=== PATIENT | male | born 1980 | race Caucasian/White ===

== ENCOUNTER 2017-04-18 16:39 | Emergency (ER) | payer MEDICAID, OTHER ==
[2017-04-18 16:44] VITALS: BP 124/65; PULSE 98; RESP 16; TEMP 99.3
[2017-04-18] MEDS ORDERED: DIPH,PERTUS(ACELL)TETVAC-LF 0.5 ML VIAL IM ONE (16:55)
--- NOTE | 2017-04-18 17:18 | ED ---
Lower Extremity Injury HPI - General Chief Complaint: Extremity Injury, Lower Stated Complaint: Nail fell on foot Time Seen by Provider: 04/18/17 16:49 Source: patient, RN notes reviewed Mode of arrival: ambulatory Limitations: no limitations - History of Present Illness Initial Comments: This is a 37-year-old male who presents to the emergency department with chief complaint of puncture wound to right foot. Patient states that he was working on an old home prior to arrival when a board with an old, [place] nail fell onto the top of his right foot. Patient states he believes he is up-to-date with tetanus but is not completely certain. Patient states that he believes he hit a "vein" as there was a lot of bleeding. Patient reports the nail did not go very deep and is not concerned about any bone involvement. Denies fever, chills , chest pain, shortness of breath, abdominal pain, nausea or vomiting, constipation or diarrhea, dysuria or hematuria, numbness or tingling, headache or vision changes. - Related Data Previous Rx's Medication Instructions Recorded Ciprofloxacin HCl [Cipro] 500 mg PO Q12HR #14 tablet 04/18/17 Allergies Allergy/AdvReac Type Severity Reaction Status Date / Time No Known Allergies Allergy Verified 04/18/17 16:58 Review of Systems ROS Statement: Those systems with pertinent positive or pertinent negative responses have been documented in the HPI. ROS Other: All systems not noted in ROS Statement are negative. Past Medical History Past Medical History: No Reported History History of Any Multi-Drug Resistant Organisms: None Reported Past Surgical History: No Surgical Hx Reported Past Psychological History: No Psychological Hx Reported Smoking Status: Current every day smoker Past Alcohol Use History: None Reported Past Drug Use History: None Reported General Exam - General Exam Comments Initial Comments: General: Awake and alert, well-developed; in no apparent distress. HEENT: Head atraumatic, normocephalic. Pupils are equal, round and reactive to light. Extraocular movements intact. Neck: Supple. Normal ROM. Cardiovascular: Regular rate and rhythm. No murmurs, rubs or gallops. Chest symmetrical. Respiratory: Lungs clear to auscultation bilaterally. No wheezes, rales or rhonchi. Normal respiratory effort with no use of accessory muscles. Musculoskeletal: Normal range of motion of right ankle and digits. Sensation is intact. Pedal pulses are 2+ equal and palpable bilaterally. Skin: [place], warm and dry without rashes. There is a piece of gauze with dried blood overlying wound. Small 3 mm superficial puncture wound on the lateral dorsal aspect of right foot. Bleeding is controlled. Neurological: Alert and oriented x3. CN II-XII grossly intact. Speech is fluent and answers are appropriate. No focal neuro deficits. Psychiatric: Normal mood and affect. No overt signs of depression or anxiety noted. Limitations: no limitations Course Vital Signs 04/18/17 16:41 Temperature 99.3 F Pulse Rate 98 Respiratory 16 Rate Blood Pressure 124/65 O2 Sat by Pulse 100 Oximetry Medical Decision Making - Medical Decision Making This is a 37 year old male who presents to the emergency department with chief complaint of puncture wound to right foot. Patient reports the nail that punctured right foot was [place] and he is unsure if he is up-to-date with his tetanus vaccination. He received tetanus vaccination update while in the emergency department. He will be discharged home with a prescription for antibiotics. He is to follow up with his primary care provider in 1-2 days. He is no acute distress at this time. Patient is in agreement to the plan and voices understanding. All questions were answered. Disposition Clinical Impression: Puncture wound of skin from metal nail Disposition: HOME SELF-CARE Condition: Good Instructions: Puncture Wound (ED) Additional Instructions: Please take medications as prescribed. Please follow up with primary care provider within 1-2 days. Return to emergency department if symptoms should worsen or any concerns arise. Prescriptions: Ciprofloxacin HCl [Cipro] 500 mg PO Q12HR #14 tablet Referrals: Bijal Barlow MD [Primary Care Provider] - 1-2 days Time of Disposition: 17:26
== END 2017-04-18 17:45 | disposition home or self-care (01) ==
LOC: EC 16:39
DX: S91.331A Puncture wound without foreign body, right foot, initial encounter (principal); F17.200 Nicotine dependence, unspecified, uncomplicated; Z23 Encounter for immunization; W45.0XXA Nail entering through skin, initial encounter; Y92.009 Unspecified place in unspecified non-institutional (private) residence as the place of occurrence of the external cause
CPT/HCPCS: 90471; 90715; 99283

== ENCOUNTER 2022-07-07 17:45 | Emergency (ER) | payer OTHER, BC ==
[2022-07-07 17:56] VITALS: BP 101/75; PULSE 90; RESP 20; TEMP 98.6
--- NOTE | 2022-07-07 19:34 | ED ---
Extremity Problem HPI - General Chief complaint: Extremity Problem,Nontraumatic Stated complaint: rt leg pain Time Seen by Provider: 07/07/22 18:56 Source: patient, RN notes reviewed Mode of arrival: ambulatory Limitations: no limitations - History of Present Illness Initial comments: This is a 42-year-old male who presents to the emergency department for right thigh numbness. States that this has been occurring for the last 6 months. He does not have any associated pain, but states that this is becoming very bothersome and making it difficult to work. Denies any numbness going down the leg or in the back. Also denies any injuries. The numbness is localized to the center and outside of the thigh. He has not noticed any swelling, redness, or increased heat to this area. Denies any fevers, chills, sore throat, cough, dyspnea, chest pain, palpitations, abdominal pain, nausea, vomiting, diarrhea, back pain, or headaches. MD Complaint: other (thigh numbness) Onset/Timin -: month(s) Location: right, lower extremity - Related Data Previous Rx's Medication Instructions Recorded Ciprofloxacin HCl [Cipro] 500 mg PO Q12HR #14 tablet 04/18/17 predniSONE 50 mg PO DAILY 5 Days #5 tab 07/07/22 Allergies Allergy/AdvReac Type Severity Reaction Status Date / Time No Known Allergies Allergy Verified 07/07/22 17:56 Review of Systems ROS Statement: Those systems with pertinent positive or pertinent negative responses have been documented in the HPI. ROS Other: All systems not noted in ROS Statement are negative. Past Medical History Past Medical History: No Reported History History of Any Multi-Drug Resistant Organisms: None Reported Past Surgical History: No Surgical Hx Reported Past Psychological History: No Psychological Hx Reported Smoking Status: Vaper Past Alcohol Use History: None Reported Past Drug Use History: None Reported General Exam Limitations: no limitations General appearance: alert, in no apparent distress Head exam: Present: atraumatic, normocephalic, normal inspection Respiratory exam: Present: normal lung sounds bilaterally. Absent: respiratory distress, wheezes, rales, rhonchi, stridor Cardiovascular Exam: Present: regular rate, normal rhythm, normal heart sounds. Absent: systolic murmur, diastolic murmur, rubs, gallop, clicks Extremities exam: Present: other (No tenderness, swelling, erythema, or deformities to the right thigh. Decreased sensation to light touch on the right thigh compared to the left. 2+ dorsalis pedis and tibialis posterior pulses bilaterally.) Neurological exam: Present: alert, oriented X3, CN II-XII intact Psychiatric exam: Present: normal affect, normal mood Skin exam: Present: warm, dry, intact, normal color. Absent: rash Course Vital Signs 07/07/22 17:54 Temperature 98.6 F Pulse Rate 90 Respiratory 20 Rate Blood Pressure 101/75 O2 Sat by Pulse 96 Oximetry Medical Decision Making - Medical Decision Making This is a 42-year-old male who presents to the emergency department for right thigh numbness. Was pt. sent in by a medical professional or institution? @ -No Did you speak to anyone other than the patient for history? @ -No Did you review nursing and triage notes? @ -Yes, and I agree, it is accurate with regards to the patient's symptoms. Were old charts reviewed? @ -No Differential Diagnosis? @ -Differential Leg Numbness: DVT, arterial occlusion, meralgia paresthetica, trauma, lumbar radiculopathy, fracture, stroke, neuropathy, this is not meant to be an all-inclusive list. X-rays interpreted by me (1pt min.)? @ -X-ray of the right hip and lumbar spine obtained. My interpretation identifies no acute fractures or bony lesions. U/S interpreted by me (1pt. min.)? @ -Duplex ultrasound of the right lower extremity obtained. My interpretation identifies no evidence of a DVT. What testing was considered but not performed? (CT, X-rays, U/S, labs)? Why? @ -None What meds were considered but not given? Why? @ -None Did you discuss the management of the patient with other professionals? @ -No Did you reconcile home meds? @ -No Was smoking cessation discussed for >3mins.? @ -No Was critical care preformed (if so, how long)? @ -No Were there social determinants of health that impacted care today? How? (Homelessness, low income, unemployed, alcoholism, drug addiction, transportation, low edu. Level, literacy, decrease access to med. care, detention, rehab)? @ -No Was there de-escalation of care discussed even if they declined? (Discuss DNR or withdrawal of care, Hospice)? @ -No What co-morbidities impacted this encounter? (DM, HTN, Smoking, COPD, CAD, Cancer, CVA, Hep., AIDS, mental health diagnosis, sleep apnea, morbid obesity)? @ -Morbid obesity Was patient admitted / discharged? @ -Discharged. X-ray of the right hip and lumbar spine obtained revealing no acute irregularities. Duplex ultrasound of the right lower extremity identifies no evidence of a DVT or other acute findings. The location and description of his symptoms are most consistent with a myalgia paresthetica. Patient admits to wearing tight belts. He is advised to wear loose clothing, lose weight, and avoid belts for the meantime. Prescription for 5 day course of prednisone provided in the event that provides any symptomatic relief. He was also given information for orthopedic follow-up. Advised he contact them tomorrow morning for a follow-up appointment to discuss additional testing and treatment options. Undiagnosed new problem with uncertain prognosis? @ -None Drug Therapy requiring intensive monitoring for toxicity (Heparin, Nitro, Insulin, Cardizem)? @ -None Were any procedures done? @ -None Diagnosis/symptom? @ -Meralgia paresthetica Acute, or Chronic, or Acute on Chronic? @ -Chronic Uncomplicated (without systemic symptoms) or Complicated (systemic symptoms)? @ -Uncomplicated Side effects of treatment? @ -None Exacerbation, Progression, or Severe Exacerbation] @ -Not applicable Poses a threat to life or bodily function? @ -No Return precautions reviewed in depth, the patient is instructed to return to the emergency department with any new, worsening, or concerning symptoms. Patient verbalized understanding. This case was discussed in detail with the attending ED physician, Dr. Vázquez. Presentation, findings, and treatment plan discussed in detail as well. - Radiology Data Radiology results: report reviewed, image reviewed Disposition Clinical Impression: Meralgia paresthetica of right side Disposition: HOME SELF-CARE Instructions (If sedation given, give patient instructions): Meralgia Paresthetica (ED) Additional Instructions: Return to the emergency department with any new, worsening, or concerning symptoms. Take the prednisone daily for 5 days. Try to avoid wearing belts and wear loose clothing. Contact orthopedics as listed below for a follow-up appointment. Follow up with your primary care provider in 1-2 days. Prescriptions: predniSONE 50 mg PO DAILY 5 Days #5 tab Is patient prescribed a controlled substance at d/c from ED?: No Referrals: Shaye Hazel MD [Primary Care Provider] - 1-2 days Elmer English MD [STAFF PHYSICIAN] - 1-2 days
--- NOTE | 2022-07-07 19:42 | XR ---
EXAMINATION TYPE: XR lumbar spine 2 or 3V DATE OF EXAM: 07/07/2022 COMPARISON: NONE HISTORY: Pain TECHNIQUE: 3 views FINDINGS: Lumbar vertebra have normal spacing and alignment. Posterior element are intact. No heriberto jesus fracture. Sacroiliac joints appear normal. IMPRESSION: Normal lumbar spine exam. No fracture.
--- NOTE | 2022-07-07 19:42 | XR ---
EXAMINATION TYPE: XR Hip Complete RT DATE OF EXAM: 07/07/2022 COMPARISON: NONE HISTORY: Pain TECHNIQUE: 2 views FINDINGS: The acetabulum is intact. Proximal right femur and hip joint appear normal. IMPRESSION: Negative right hip exam
--- NOTE | 2022-07-07 20:15 | US ---
EXAMINATION TYPE: US venous doppler duplex LE RT DATE OF EXAM: 07/07/2022 7:09 PM COMPARISON: NONE CLINICAL HISTORY: Right thigh numbness. Right thigh numbness x 6 months SIDE PERFORMED: Right TECHNIQUE: The lower extremity deep venous system is examined utilizing real time linear array sonog tino with graded compression, doppler sonography and color-flow sonography. VESSELS IMAGED: Common Femoral Vein Deep Femoral Vein Greater Saphenous Vein * Femoral Vein Popliteal Vein Small Saphenous Vein * Proximal Calf Veins (* superficial vessels) Right Leg: Negative for DVT IMPRESSION: No sign of deep vein thrombosis in right leg.
== END 2022-07-07 20:55 | disposition home or self-care (01) ==
LOC: EC 17:45
DX: G57.11 Meralgia paresthetica, right lower limb (principal); F17.290 Nicotine dependence, other tobacco product, uncomplicated
CPT/HCPCS: 72100; 73502; 99283